=== PATIENT | male | born 1980 | race Caucasian/White ===

== ENCOUNTER 2017-01-10 18:50 | Emergency (ER) | END 2017-01-10 21:40 | disposition home or self-care (01) | DX: R21 Rash and other nonspecific skin eruption (principal); I10 Essential (primary) hypertension ==

== ENCOUNTER 2017-09-07 23:04 | Emergency (ER) | END 2017-09-08 01:20 | disposition home or self-care (01) ==

== ENCOUNTER 2018-07-24 23:58 | Emergency (ER) | payer MEDICAID ==
[~2018-07-24] VITALS: Ht 170.2 cm; Wt 108.8 kg
[~2018-07-24 23:58] MED LIST: CLOT30CR24 TOP; IBUP-1542 PO; TAMS-14 PO
[2018-07-25 00:02] VITALS: BP 135/90; PULSE 69; RESP 20; Ht 170.2 cm; Wt 108.8 kg
[2018-07-25] MEDS ORDERED: KETOROLAC 30 MG INJ IM STA (00:39)
[2018-07-25] MEDS ORDERED: HYDR-4011 PO (00:41)
[2018-07-25] MEDS ORDERED: IBUP800T48 PO (00:41)
[2018-07-25] MEDS ORDERED: CYCL10TA7 PO (00:41)
--- NOTE | 2018-07-25 00:50 | ERD ---
ER Documentation Chief Complaint Chief Complaint c/o lower back pain after lifting heavy objects yesterday. HPI 38-year-old male who presents with lower back pain secondary to lifting heavy objects at work. He states this is been ongoing for some time and every time he works and has to lift heavy objects he gets this pain. However the pain is been getting worse and has been taking Motrin and Motrin is not helping him. No bowel or bladder incontinence or saddle anesthesia. He is ambulatory. ROS All systems reviewed and are negative except as per history of present illness. Medications Home Meds Active Scripts Hydrocodone/Acetaminophen ([place] 5-325 Tablet) 1 Each Tablet, 1 TAB PO Q6H PRN for PAIN, #15 TAB Prov:CONNIE WADE PA-C 07/25/18 Ibuprofen* (Motrin*) 800 Mg Tab, 800 MG PO Q6, #30 TAB Prov:CONNIE WADE PA-C 07/25/18 Cyclobenzaprine Hcl* (Cyclobenzaprine Hcl*) 10 Mg Tablet, 10 MG PO BID, #20 TAB Prov:CONNIE WADE PA-C 07/25/18 Ibuprofen* (Motrin*) 600 Mg Tab, 600 MG PO Q6H PRN for PAIN AND OR ELEVATED TEMP, #20 TAB Prov:CLIFTON ACEVSE MD 09/08/17 Clotrimazole* (Clotrimazole* AF) 1% - 30 Gm Cream.gm., 1 APPLIC TOP BID for 28 Days, #1 TUB Prov:JEFF DAI PA-C 01/10/17 Tamsulosin Hcl* (Flomax*) 0.4 Mg Cap.er.24h, 0.4 MG PO QPM, #30 CAP Prov:CHRISTIAN DANIELLE MD 12/30/15 Allergies Allergies: Coded Allergies: amoxicillin (Verified Allergy, Unknown, 07/25/18) PMhx/Soc History of Surgery: Yes (Glaucoma) Anesthesia Reaction: No Hx Neurological Disorder: No Hx Respiratory Disorders: No Hx Cardiac Disorders: Yes (HTN) Hx Psychiatric Problems: No Hx Miscellaneous Medical Probl: No Hx Alcohol Use: No Hx Substance Use: No Hx Tobacco Use: No FmHx Family History: No diabetes Physical Exam Vitals Vital Signs Date Temp Pulse Resp B/P (MAP) Pulse Ox O2 O2 Flow FiO2 Time Delivery Rate 4/18/19 97.0 69 20 135/90 98 00:02 (105) Physical Exam Const: No acute distress Head: Atraumatic Eyes: Normal Conjunctiva ENT: Normal External Ears, Nose and Mouth. Neck: Full range of motion. No meningismus. Resp: Clear to auscultation bilaterally Cardio: Regular rate and rhythm, no murmurs Back Exam: Compartments: Soft Motor: Normal flexion and extension of bilateral hip/knee/ankle/foot Sensation: Intact to light touch throughout Bones: No midline TTP Results 24 hrs Current Medications Medications Dose Sig/Reshma Start Time Status Last (Trade) Ordered Route PRN Stop Time Admin Dose Reason Admin Ketorolac 30 mg ONCE STAT 07/25/18 DC Tromethamine IM 00:39 (Toradol) 07/25/18 00:40 1 tab ONCE ONCE 07/25/18 Acetaminophen PO 01:00 / 07/25/18 01:01 Hydrocodone Bitart ([place] (10)) Procedures/MDM The differential diagnosis includes but is not limited to muscle strain, ligament strain, contusion, arthritis, discogenetic disease, non- musculoskeletal, cauda equina syndrome, cord compression, abscess and others. No trauma. No indication for imaging. Ambulatory neurovascular intact. No bowel or bladder incontinence. No saddle anesthesia. Toradol and [place] given here. Prescription for [place] ibuprofen and Flexeril given. Patient counseled regarding my diagnostic impression and care plan. Prior to discharge all questions answered. Pt agrees with treatment plan and understands strict return precautions. Pt is instructed to follow up with primary care provider within 24- 48 hours. Precautionary instructions provided including instructions to return to the ER if not improving or for any worsening or changing symptoms or concerns. Departure Diagnosis: Primary Impression: Back pain Condition: Stable Patient Instructions: Back Pain (Acute Or Chronic) Additional Instructions: Llame al doctor MAANA y ivett harmeet [place] PARA DENTRO DE 1-2 [place].Dgale a la secretaria que nosotros le instruimos hacer esta [place].Avise o llame si be condicin se empeora antes de la [place]. Regresa aqui si peor o no mejor. CONNIE WADE PA-C Jul 25, 2018 00:50
[2018-07-25] MEDS ORDERED: HYDROCODONE/APAP (10/325) TAB PO ONE (01:00)
== END 2018-07-25 01:10 | disposition home or self-care (01) ==
LOC: FTE 23:58
DX: M54.5 Low back pain (principal); I10 Essential (primary) hypertension
CPT/HCPCS: 96372; J1885; Z7502; Z7610